=== PATIENT | male | born 1990 | race Asian ===

== ENCOUNTER 2020-08-24 17:10 | Emergency (ER) | payer BC, MEDICAID ==
[~2020-08-24] VITALS: Ht 172.7 cm; Wt 104.5 kg
[2020-08-24 17:17] VITALS: BP 112/72
[2020-08-24] MEDS ORDERED: PROZ10 PO (17:17)
[2020-08-24] MEDS ORDERED: OMEPRAZOLE 20 MG CAPSULE PO ONE (18:30)
[2020-08-24] MEDS ORDERED: PB/HYOSCY/ATR/SCOP/LIDO/MAALOX 55 ML BOTTLE PO ONE (18:30)
== END 2020-08-24 19:05 | disposition home or self-care (01) ==
LOC: EMS 17:10
DX: R12 Heartburn (principal); F10.10 Alcohol abuse, uncomplicated; R11.10 Vomiting, unspecified; R00.2 Palpitations; R20.8 Other disturbances of skin sensation; F41.9 Anxiety disorder, unspecified; G89.29 Other chronic pain; K21.9 Gastro-esophageal reflux disease without esophagitis; F17.210 Nicotine dependence, cigarettes, uncomplicated

== ENCOUNTER 2020-09-04 14:11 | Emergency (ER) | payer MEDICAID, OTHER ==
[~2020-09-04] VITALS: Ht 177.8 cm; Wt 109.1 kg
[~2020-09-04 14:11] MED LIST: PROZ10 PO
[2020-09-04 14:14] VITALS: BP 135/62
== END 2020-09-04 15:52 | disposition home or self-care (01) ==
LOC: EMS 14:11
DX: R00.2 Palpitations (principal); R06.02 Shortness of breath; F41.9 Anxiety disorder, unspecified; F17.210 Nicotine dependence, cigarettes, uncomplicated
CPT/HCPCS: 93005

== ENCOUNTER 2020-09-07 13:52 | Emergency (ER) | payer OTHER ==
[~2020-09-07] VITALS: Ht 167.6 cm; Wt 95.0 kg
[2020-09-07 13:57] VITALS: BP 117/84
== END 2020-09-07 15:22 | disposition home or self-care (01) ==
LOC: EMS 13:52
DX: F41.9 Anxiety disorder, unspecified (principal); K21.9 Gastro-esophageal reflux disease without esophagitis; G47.30 Sleep apnea, unspecified; G47.00 Insomnia, unspecified; F17.210 Nicotine dependence, cigarettes, uncomplicated; Z79.899 Other long term (current) drug therapy
CPT/HCPCS: Z7502

== ENCOUNTER 2020-09-15 12:51 | Emergency (ER) | payer OTHER ==
[~2020-09-15] VITALS: Ht 172.7 cm; Wt 100.0 kg
[2020-09-15 17:22] VITALS: BP 130/93
== END 2020-09-15 18:40 | disposition home or self-care (01) ==
LOC: EMS 12:53
DX: F41.9 Anxiety disorder, unspecified (principal); G47.30 Sleep apnea, unspecified; K21.9 Gastro-esophageal reflux disease without esophagitis; F17.210 Nicotine dependence, cigarettes, uncomplicated
CPT/HCPCS: 99406; 71046; 71046-TC

== ENCOUNTER 2021-09-24 16:57 | Emergency (ER) | payer OTHER ==
[~2021-09-24] VITALS: Ht 172.7 cm; Wt 109.1 kg
[~2021-09-24 16:57] MED LIST changes: +FLUO10CA24 PO; -PROZ10 PO
[2021-09-24 20:42] VITALS: BP 91/72
[2021-09-24 21:57] LABS: COVID AG,FIA SOURCE NASOPHARYNGEAL
== END 2021-09-24 21:00 | disposition home or self-care (01) ==
LOC: EMS 17:00
DX: R07.89 Other chest pain (principal); F41.9 Anxiety disorder, unspecified; K21.9 Gastro-esophageal reflux disease without esophagitis; F17.210 Nicotine dependence, cigarettes, uncomplicated; Z20.822 Contact with and (suspected) exposure to COVID-19
CPT/HCPCS: 71046; 93005; 99285; 99406

== ENCOUNTER 2022-03-01 21:15 | Emergency (ER) | payer OTHER ==
[~2022-03-01] VITALS: Ht 172.7 cm; Wt 104.5 kg
[2022-03-01 21:40] LABS: COVID AG,FIA SOURCE NASOPHARYNGEAL
[2022-03-01 22:02] LABS: INFLUENZA TYPE A NEGATIVE FOR TYPE A (NEGATIVE); INFLUENZA TYPE B NEGATIVE FOR TYPE B (NEGATIVE)
[2022-03-01] MEDS ORDERED: HYDR-4723 PO (22:33)
[2022-03-01] MEDS ORDERED: IBUP-1554 PO (22:33)
[2022-03-01] MEDS ORDERED: GUAIFDM PO (22:33)
[2022-03-01] MEDS ORDERED: HYDROCODONE/ACETAMINOPHEN 5-325 MG TABLET PO ONE (22:45)
[2022-03-01] MEDS ORDERED: GuaiFENesin/D-METHORPHAN [SUGAR-FREE] 200-20MG/10 ML SYRUP UDCUP PO ONE (22:45)
[2022-03-01] MEDS ORDERED: IBUPROFEN 600 MG TABLET PO ONE (22:45)
[2022-03-02 00:54] VITALS: BP 135/81
== END 2022-03-02 00:57 | disposition home or self-care (01) ==
LOC: EMS 21:16
DX: U07.1 COVID-19 (principal); J06.9 Acute upper respiratory infection, unspecified; R07.89 Other chest pain; F10.20 Alcohol dependence, uncomplicated; F17.210 Nicotine dependence, cigarettes, uncomplicated; K21.9 Gastro-esophageal reflux disease without esophagitis; F41.9 Anxiety disorder, unspecified
CPT/HCPCS: 71045; 87804; 93005; 99285

== ENCOUNTER 2022-03-21 14:31 | Emergency (ER) | payer OTHER ==
[~2022-03-21 14:31] MED LIST changes: +GUAIFDM PO; +HYDR-4723 PO; +IBUP-1554 PO
== END 2022-03-21 16:17 | disposition left against medical advice (07) ==
LOC: EMS 14:31
DX: Z53.21 Procedure and treatment not carried out due to patient leaving prior to being seen by health care provider (principal)

== ENCOUNTER 2023-07-17 13:10 | Emergency (ER) | payer OTHER ==
[~2023-07-17] VITALS: Ht 177.8 cm; Wt 105.0 kg
[2023-07-17 13:17] VITALS: TEMP 98.3
[2023-07-17] MEDS ORDERED: ESCI-8 PO (13:22)
[2023-07-17] MEDS ORDERED: TIZA-194 PO (13:22)
[2023-07-17 13:41] LABS: BASOPHILS % (AUTO) 1.1 % (0.0-2.0); EOSINOPHILS % (AUTO) 4.2 % (1.0-6.0); HEMATOCRIT 40.2 % (41-53); HEMOGLOBIN 13.8 g/dL (13.5-17.5); LYMPHOCYTES # (AUTO) 2.2 K/uL (1.0-4.8); LYMPHOCYTES % (AUTO) 37.7 % (22.0-44.0); MEAN CORPUSCULAR HEMOGLOBIN 30.4 pg (26.0-34.0); MEAN CORPUSCULAR HGB CONC 34.4 G/dL (31.0-37.0); MEAN CORPUSCULAR VOLUME 89 fL (80-100); MONOCYTES # (AUTO) 0.3 K/uL (0.1-1.0); MONOCYTES % (AUTO) 5.1 % (2.0-9.0); NEUTROPHILS # (AUTO) 3.1 K/uL (1.8-7.7); NEUTROPHILS % (AUTO) 51.9 % (40.0-70.0); PLATELET COUNT (AUTO) 262 K/uL (150-450); RED BLOOD CELL COUNT(AUTO) 4.54 MIL/uL (4.50-5.90); RED CELL DISTRIBUTION WIDTH 13.1 % (11.5-14.5)
[2023-07-17 13:51] LABS: ANION GAP 7 mmol/L (8-16); CALCIUM, TOTAL 8.9 mg/dL (8.8-10.5); CARBON DIOXIDE 29 mmol/L (22-29); CHLORIDE 105 mmol/L (98-107); GLOMERULAR FILTR. RATE CALC > 60 mL/min (>60); GLUCOSE,RANDOM 96 mg/dL (70-110); POTASSIUM 3.7 mmol/L (3.5-5.1); SODIUM SERUM 141 mmol/L (136-145); UREA NITROGEN, BLOOD 9 mg/dL (7-18)
[2023-07-17 14:00] LABS: ALANINE AMINOTRANSFERASE 80 U/L (12-78); ALBUMIN 3.7 g/dL (3.4-5.0); ALKALINE PHOSPHATASE 59 U/L (46-116); ASPARTATE AMINOTRANSFERASE 36 U/L (15-37); BILIRUBIN,TOTAL 0.3 mg/dL (0.1-1.0); LIPASE 41 U/L (16-77); TOTAL PROTEIN, SERUM 7.7 g/dL (6.4-8.2)
[2023-07-17 16:24] LABS: TROPONIN I-HIGH SENSITIVITY 6 ng/L (<76)
[2023-07-17] MEDS ORDERED: MAG30ORA11 PO (18:09)
[2023-07-17 18:10] VITALS: BP 128/79; PULSE 74; RESP 16
== END 2023-07-17 18:15 | disposition home or self-care (01) ==
LOC: EMS 13:19
DX: R10.13 Epigastric pain (principal); R07.89 Other chest pain
CPT/HCPCS: 74176; 80053; 83690; 84484; 85025; 93005; 99284

== ENCOUNTER 2023-11-17 21:20 | Emergency (ER) | payer OTHER ==
[~2023-11-17] VITALS: Ht 172.7 cm; Wt 109.1 kg
[~2023-11-17 21:20] MED LIST changes: +ESCI-8 PO; -FLUO10CA24 PO; -GUAIFDM PO; -HYDR-4723 PO; -IBUP-1554 PO; +MAG30ORA11 PO; +TIZA-194 PO
[2023-11-17 21:26] VITALS: BP 139/90; PULSE 98; RESP 18; TEMP 98.2
[2023-11-17 22:34] LABS: EOSINOPHILS % (AUTO) 3.3 % (1.0-6.0); HEMATOCRIT 42.6 % (41-53); HEMOGLOBIN 14.7 g/dL (13.5-17.5); LYMPHOCYTES # (AUTO) 2.6 K/uL (1.0-4.8); LYMPHOCYTES % (AUTO) 36.1 % (22.0-44.0); MEAN CORPUSCULAR HEMOGLOBIN 30.7 pg (26.0-34.0); MEAN CORPUSCULAR HGB CONC 34.5 G/dL (31.0-37.0); MEAN CORPUSCULAR VOLUME 89 fL (80-100); MONOCYTES # (AUTO) 0.4 K/uL (0.1-1.0); MONOCYTES % (AUTO) 6.3 % (2.0-9.0); NEUTROPHILS # (AUTO) 3.8 K/uL (1.8-7.7); NEUTROPHILS % (AUTO) 53.3 % (40.0-70.0); PLATELET COUNT (AUTO) 287 K/uL (150-450); RED BLOOD CELL COUNT(AUTO) 4.78 MIL/uL (4.50-5.90); RED CELL DISTRIBUTION WIDTH 13.3 % (11.5-14.5); WHITE BLOOD COUNT (AUTO) 7.1 K/uL (4.5-11.0)
[2023-11-17 22:44] LABS: ANION GAP 9 mmol/L (8-16); CARBON DIOXIDE 26 mmol/L (22-29); CHLORIDE 102 mmol/L (98-107); CREATININE 0.95 mg/dL (0.60-1.30); GLUCOSE,RANDOM 156 mg/dL (70-110); POTASSIUM 3.5 mmol/L (3.5-5.1); SODIUM SERUM 137 mmol/L (136-145); UREA NITROGEN, BLOOD 16 mg/dL (7-18)
[2023-11-17 22:45] LABS: CALCIUM, TOTAL 9.2 mg/dL (8.8-10.5); GLOMERULAR FILTR. RATE CALC > 60 mL/min (>60)
[2023-11-17 22:50] LABS: ALANINE AMINOTRANSFERASE 101 U/L (12-78); ALKALINE PHOSPHATASE 75 U/L (46-116); ASPARTATE AMINOTRANSFERASE 38 U/L (15-37); BILIRUBIN,TOTAL 0.2 mg/dL (0.1-1.0); TOTAL PROTEIN, SERUM 8.2 g/dL (6.4-8.2)
== END 2023-11-17 23:26 | disposition home or self-care (01) ==
LOC: EMS 21:20
DX: R51.9 Headache, unspecified (principal); F41.9 Anxiety disorder, unspecified; Z90.49 Acquired absence of other specified parts of digestive tract
CPT/HCPCS: 70450; 80053; 85025; 99284

== ENCOUNTER 2024-12-06 08:26 | Emergency (ER) | payer OTHER ==
[~2024-12-06] VITALS: Ht 172.7 cm; Wt 111.4 kg
[2024-12-06 08:36] VITALS: TEMP 97.9
[2024-12-06] MEDS ORDERED: IBUP-1492 PO (10:32)
[2024-12-06 10:43] VITALS: BP 111/76; PULSE 75; RESP 18; O2SAT 97
== END 2024-12-06 10:44 | disposition home or self-care (01) ==
LOC: EMS 08:30
DX: M62.838 Other muscle spasm (principal); G44.209 Tension-type headache, unspecified, not intractable; F41.9 Anxiety disorder, unspecified; K21.9 Gastro-esophageal reflux disease without esophagitis; Z90.49 Acquired absence of other specified parts of digestive tract
CPT/HCPCS: 99282; Z7502